=== PATIENT | male | born 1950 | race Caucasian/White ===

== ENCOUNTER 2023-01-09 10:53 | Emergency (ER) | payer BC ==
[~2023-01-09] VITALS: Ht 177.8 cm; Wt 83.9 kg
[2023-01-09 10:56] VITALS: BP 128/70; PULSE 99; RESP 17; TEMP 97.4; O2SAT 98
[2023-01-09 11:54] LABS: BASOPHILS % (AUTO) 0.1 % (0.0-2.0); EOSINOPHILS % (AUTO) 0.1 % (0.0-4.0); HEMATOCRIT 43.7 % (36-52); HEMOGLOBIN 15.4 g/dL (12.0-18.0); LYMPHOCYTES # (AUTO) 0.7 K/uL (2.0-11.5); LYMPHOCYTES % (AUTO) 7.8 % (20.5-51.1); MEAN CORPUSCULAR HEMOGLOBIN 32 pg (27-31); MEAN CORPUSCULAR HGB CONC 35 g/dL (33-37); MONOCYTES # (AUTO) 0.3 K/uL (0.8-1.0); MONOCYTES % (AUTO) 3.5 % (1.7-9.3); NEUTROPHILS # (AUTO) 7.4 K/uL (1.8-7.7); NEUTROPHILS % (AUTO) 88.5 % (42.2-75.2); PLATELET COUNT (AUTO) 150 K/uL (140-450); RED BLOOD CELL COUNT(AUTO) 4.81 MIL/uL (4.20-6.10); WHITE BLOOD COUNT (AUTO) 8.3 K/uL (4.8-10.8)
[2023-01-09 12:07] VITALS: PULSE 52
[2023-01-09 12:10] LABS: INR 1.17 (0.8-1.2); PARTIAL THROMBOPLASTIN TIME 25.6 secs (22-35.6); PROTHROMBIN TIME 12.2 secs (10.8-13.4)
[2023-01-09 12:11] LABS: ANION GAP 15.7 (8-16); CALCIUM 8.7 mg/dL (8.5-10.1); CARBON DIOXIDE 23.4 mmol/L (21-32); CHLORIDE 104 mmol/L (98-107); CREATININE 0.9 mg/dL (0.6-1.3); GLUCOSE 158 mg/dL (74-106); POTASSIUM 4.1 mmol/L (3.5-5.1); SODIUM SERUM 139 mmol/L (136-145); UREA NITROGEN, BLOOD 12 mg/dL (7-18)
[2023-01-09 12:24] LABS: ALANINE AMINOTRANSFERASE 24 U/L (12-78); ALBUMIN 3.8 g/dL (3.4-5.0); ALKALINE PHOSPHATASE 68 U/L (50-136); TOTAL BILIRUBIN 0.7 mg/dL (0.0-1.0); TOTAL PROTEIN, SERUM 7.2 g/dL (6.4-8.2)
[2023-01-09 12:38] LABS: ASPARTATE AMINOTRANSFERASE 22 U/L (15-37)
[2023-01-09] MEDS ORDERED: ASPIRIN 325 MG TAB PO ONE (13:35)
[2023-01-09] MEDS ORDERED: MECLIZINE 25 MG TAB PO ONE (13:35)
[2023-01-09] MEDS ORDERED: MECL-303 PO (15:23)
[2023-01-09 15:38] VITALS: O2SAT 96
== END 2023-01-09 15:40 | disposition home or self-care (01) ==
LOC: MED 10:53
DX: H81.399 Other peripheral vertigo, unspecified ear (principal); T50.995A Adverse effect of other drugs, medicaments and biological substances, initial encounter; Z79.899 Other long term (current) drug therapy; Y92.89 Other specified places as the place of occurrence of the external cause
CPT/HCPCS: 36415; 70450; 70496; 70498; 71045; 80053; 83880; 84484; 85025; 85610; 85730; 86886; 86900; 86901; 93005; 99285; J8597; Q9967